=== PATIENT | female | born 1960 | race Caucasian/White ===

== ENCOUNTER 2018-05-31 13:01 | Emergency (ER) | payer OTHER ==
[~2018-05-31] VITALS: Ht 157.5 cm; Wt 79.4 kg
[2018-05-31 13:22] VITALS: BP_SYST 145
[2018-05-31] MEDS: HYDROcodone/ACETAMIN 5-325 MG TAB (NORCO/ VICODIN) PO ONE ×2 (13:43→13:47)
[2018-05-31] MEDS ORDERED: DEXAMETHASONE SOD PHOSPHATE 10 MG/ML VIAL IM ONE (13:45)
[2018-05-31] MEDS ORDERED: IPRATROPIUM/ALBUTEROL SULFATE 3 ML AMPUL.NEB INH ONE (13:45)
[2018-05-31 14:40] VITALS: BP_SYST 140
== END 2018-05-31 14:37 | disposition home or self-care (01) ==
LOC: SED 13:01
DX: J20.9 Acute bronchitis, unspecified (principal); R03.0 Elevated blood-pressure reading, without diagnosis of hypertension; E11.9 Type 2 diabetes mellitus without complications; Z88.0 Allergy status to penicillin; Z90.89 Acquired absence of other organs; Z90.49 Acquired absence of other specified parts of digestive tract; Z90.710 Acquired absence of both cervix and uterus
CPT/HCPCS: 71045; 94640; 96372; 99283; J1100; J7620

== ENCOUNTER 2019-01-11 19:13 | Inpatient (IN) | payer OTHER ==
[~2019-01-11] VITALS: Ht 157.5 cm; Wt 80.7 kg
--- NOTE | 2019-01-11 19:15 | NUR ---
191 - Patient to ER bed 3 to [facility] for evaluation. Side rails up. Report given to ELDON Beach.
[2019-01-11 19:27] VITALS: BP_SYST 153
--- NOTE | 2019-01-11 19:48 | NUR ---
Dr. Hwang bedside for pt eval
[2019-01-11] MEDS ORDERED: ONDANSETRON HCL 4 MG/2 ML VIAL IVP ONE (20:00)
[2019-01-11] MEDS ORDERED: ASPIRIN 325 MG TABLET PO ONE (20:00)
[2019-01-11] MEDS ORDERED: NITROGLYCERIN 0.4 MG TAB.SUBL SL ONE ×2 (20:00→23:15)
--- NOTE | 2019-01-11 20:00 | NUR ---
Pt BIB family to ED C/O SOB for 2 days and 7/10 chest tightness since last night. Pt took aspirin for her chest tightness with minimal relief. Pt claims she was taken off of Synthroid approximately 2-3 weeks ago and was recently put back on the medication 5 days ago which she believes is the cause of her current symptoms. Further reports of headache, dizziness, neck ache, back ache, nausea, and vomiting for 2 days. Pt claims she was unable to get out of bed yesterday and feeling "foggy." Of note, pt states she had "bronchitis 3 times this year. Hx of thyroid disease, hypertension, high cholesterol, and borderline diabetes. No other injuries and or complaints noted. VSS no s/s of acute distress. Resting on gurney with rails up
--- NOTE | 2019-01-11 20:09 | NUR ---
12 lead EKG done bedside, well tolerated
--- NOTE | 2019-01-11 20:10 | NUR ---
Portable X Ray bedside, pt in stable condition
--- NOTE | 2019-01-11 20:20 | NUR ---
Nitro SL x 1, pt states she feels much better, "I don't think I need any more."
[2019-01-11 20:46] LABS: CALCIUM 9.6 mg/dL (8.4-11.0); CREATININE 0.64 mg/dL (0.55-1.30); POTASSIUM 3.5 mmol/L (3.5-5.1)
[2019-01-11 20:47] LABS: HEMATOCRIT 43.2 % (36-48); HEMOGLOBIN 14.4 g/dL (12.0-16.0); MEAN CORPUSCULAR HEMOGLOBIN 30 pg (27-31); MEAN CORPUSCULAR HGB CONC 33 % (32-36); MEAN CORPUSCULAR VOLUME 90 fL (79.0-98.0); PLATELET COUNT (AUTO) 182 K/uL (130-430); RED BLOOD CELL COUNT(AUTO) 4.79 MIL/uL (4.2-6.2); RED CELL DISTRIBUTION WIDTH 14.8 % (9.0-15.0); WHITE BLOOD COUNT (AUTO) 7.5 K/uL (4.8-10.8)
[2019-01-11 20:51] LABS: ALBUMIN 3.5 g/dL (3.4-4.8); TOTAL BILIRUBIN 0.4 mg/dL (0.0-1.0)
[2019-01-11 21:08] LABS: INR 0.9 (0.8-1.2); PROTHROMBIN TIME 9.6 SECS (9.5-12.5)
[2019-01-11 21:12] LABS: BILIRUBIN,URINE NEGATIVE (NEGATIVE); BLOOD, URINE 1+ (NEGATIVE); CLARITY/URINE CLEAR (CLEAR); COLOR,URINE YELLOW (YELLOW); GLUCOSE,URINE NEGATIVE (NEGATIVE); KETONES,URINE NEGATIVE (NEGATIVE); LEUKOCYTE ESTERASE ,URINE 1+ (NEGATIVE); NITRITE, URINE NEGATIVE (NEGATIVE); PROTEIN URINE NEGATIVE (NEGATIVE); UROBILINOGEN,URINE 0.2 (0.2-1.0)
[2019-01-11 21:25] LABS: BAND % (MANUAL) 5 % (0-6); BASOPHILS % (MANUAL) 0 % (0-2); EOSINOPHILS % (MANUAL) 4 % (0-7); LYMPHOCYTES % (MANUAL) 60 % (20-46); MONOCYTES % (MANUAL) 2 % (0-11)
--- NOTE | 2019-01-11 21:27 | NUR ---
Pt in stable condition with VSS no s/s of acute distress. Resting on gurney with rails up
[2019-01-11 21:41] LABS: RBC,URINE 0-3 /HPF (0-3)
[2019-01-11 21:42] LABS: BACTERIA,URINE RARE /HPF (None Seen); MUCUS,URINE None Seen /LPF (None Seen); WBC,URINE 0-3 /HPF (0-3)
[2019-01-11] MEDS ORDERED: IPRATROPIUM/ALBUTEROL SULFATE 3 ML AMPUL.NEB (DUONEB) INH ONE (22:00)
[2019-01-11] MEDS ORDERED: CIPROFLOXACIN LACT 400 MG/D5W 200 ML IV ONE (22:00)
--- NOTE | 2019-01-11 22:10 | NUR ---
Dr. Hwang bedside updated pt on possible admission
[2019-01-11] MEDS ORDERED: D5W 1,000 ML IV PRN (23:03)
[2019-01-11] MEDS ORDERED: ONDANSETRON HCL 4 MG/2 ML VIAL IVP PRN (23:15)
[2019-01-11] MEDS ORDERED: DEXTROSE 50% JECT 50 ML DISP.SYRIN IVP PRN (23:15)
[2019-01-11] MEDS ORDERED: HYDROcodone/ACETAMIN 10-325 MG TAB PO PRN (23:15)
[2019-01-11] MEDS ORDERED: GLUCOSE 15 GM GEL (in 37.5 GM TUBE) PO PRN (23:15)
--- NOTE | 2019-01-11 23:15 | NUR ---
Dr. Leiva bedside in the ER to see pt
--- NOTE | 2019-01-11 23:18 | NUR ---
Pt will be adm under the care of Dr. Weller per Dr. Leiva.
--- NOTE | 2019-01-11 23:37 | NUR ---
ADMISSION NOTE Received patient from ER via lilian, received report from ELDON GARCIA. Patient admitted with diagnosis of CHEST PAIN R/O IA. Patient oriented to hospital routine, call light, toileting and safety-patient verbalized understanding.
--- NOTE | 2019-01-11 23:37 | NUR ---
Patient will be admitted to care of Dr. Weller (per Dr. Leiva). Admitted to Telemetry unit. Will go to room 118. Belongings list completed. Summary report printed. Report will be given at bedside.
[2019-01-11 23:38] VITALS: BP_SYST 153
[2019-01-12] MEDS ORDERED: OMEP20CA10 PO (00:06)
[2019-01-12] MEDS ORDERED: ESCI20TA PO (00:06)
[2019-01-12] MEDS ORDERED: GLUXR500 PO (00:06)
--- NOTE | 2019-01-12 00:50 | NUR ---
Admission assessment done. Pt denies chest pain or pressure at this time. cardiac monitor technician is showing SB with HR in the high 50's. Saline lock in RAC is without any signs of infiltration. Call light is with pt and bed alarm is on.
--- NOTE | 2019-01-12 01:00 | NUR ---
PAGED I PAGED [phone] @ [phone] I SPOKE WITH TANVIR EXCHANGE
--- NOTE | 2019-01-12 01:05 | NUR ---
Pt requested Lexapro for sleep and wants paged. Pt stated she cannot sleep at night without taking Lexapro. Will page Dr. Leiva.
--- NOTE | 2019-01-12 01:31 | NUR ---
PAGED I PAGED DR. TRONCOSO @ [phone] I SPOKE WITH CRISSY EXCHANGE THIS IS THE SECOND CALL DR. TRONCOSO CALLED BACK @ [phone]
--- NOTE | 2019-01-12 01:36 | NUR ---
Dr. lam called back and new order received.
--- NOTE | 2019-01-12 01:59 | NUR ---
Celexa 15mg (hospital formulary for Lexapro per outside pharmacy) was given po for insomnia.
[2019-01-12] MEDS ORDERED: CITALOPRAM HYDROBROMIDE 20 MG TABLET PO SCH ×2 (02:00→21:00)
--- NOTE | 2019-01-12 03:30 | NUR ---
Pt is sleeping without any respiratory distress noted. Fall and safety precautions are in place.
--- NOTE | 2019-01-12 05:15 | NUR ---
Pt continues to sleep without any distress noted. Fall and safety precautions are in place.
[2019-01-12] MEDS: PANTOPRAZOLE SODIUM 40 MG TAB PO SCH (06:12)
[2019-01-12 06:40] LABS: BASOPHILS # (AUTO) 0.1 K/uL (0.0-0.2); BASOPHILS % (AUTO) 0.8 % (0.0-2.0); EOSINOPHILS # (AUTO) 0.3 K/uL (0.0-0.4); EOSINOPHILS % (AUTO) 3.8 % (0.0-4.0); HEMOGLOBIN 13.7 g/dL (12.0-16.0); LYMPHOCYTES # (AUTO) 3.3 K/uL (1.0-5.5); LYMPHOCYTES % (AUTO) 48.8 % (20.5-51.5); MEAN CORPUSCULAR HEMOGLOBIN 31 pg (27-31); MEAN CORPUSCULAR HGB CONC 34 % (32-36); MEAN CORPUSCULAR VOLUME 91 fL (79.0-98.0); MONOCYTES # (AUTO) 0.5 K/uL (0.0-1.0); MONOCYTES % (AUTO) 7.6 % (1.7-9.3); NEUTROPHILS # (AUTO) 2.6 K/uL (1.8-7.7); PLATELET COUNT (AUTO) 163 K/uL (130-430); RED BLOOD CELL COUNT(AUTO) 4.51 MIL/uL (4.2-6.2); RED CELL DISTRIBUTION WIDTH 14.3 % (9.0-15.0); WHITE BLOOD COUNT (AUTO) 6.7 K/uL (4.8-10.8)
[2019-01-12 06:50] LABS: ANION GAP 7 (5-15); CALCIUM 8.7 mg/dL (8.4-11.0); CHLORIDE 104 mmol/L (98-107); CREATININE 0.75 mg/dL (0.55-1.30); GLUCOSE 110 mg/dL (70-99); POTASSIUM 3.5 mmol/L (3.5-5.1); SODIUM SERUM 141 mmol/L (136-145); UREA NITROGEN, BLOOD 15 mg/dL (8-21)
--- NOTE | 2019-01-12 06:55 | NUR ---
Pt is awake and resting quietly in bed. All pt's needs were attended to. Saline lock is intact in RAC. Accucheck 107 this AM and no Insulin coverage needed. Skin remains warm and dry to touch. Fall and safety precautions are in place. Will endorse to day shift nurse.
[2019-01-12 07:00] LABS: ALANINE AMINOTRANSFERASE 42 U/L (12-78); ALBUMIN 3.4 g/dL (3.4-4.8); ASPARTATE AMINOTRANSFERASE 17 U/L (10-37); TOTAL BILIRUBIN 0.4 mg/dL (0.0-1.0)
[2019-01-12 07:14] LABS: GFR AFRICAN AMERICAN 102 mL/min (>90)
--- NOTE | 2019-01-12 07:40 | NUR ---
opening note patient is resting in bed, A&Ox4, assessment completed, educated consumer services consultant light system and plan of care, patient verbalized understanding, patient denies any pain or SOB at this time, no other needs addressed at this time, IV site clean with no signs of infiltration, allergy band on, fall/safety precautions in place.
[2019-01-12 08:00] VITALS: BP_SYST 119
[2019-01-12] MEDS: ASPIRIN 325 MG TABLET (ECOTRIN) PO SCH (08:25)
--- NOTE | 2019-01-12 09:25 | NUR ---
Cardiac consult called: for Dr. Feldman, regarding chest pain, ordered by Dr. Weller, spoke with Bernard.
[2019-01-12 09:56] LABS: THYROID STIMULATING HORMONE 4.2 uIu/mL (0.34-4.82)
--- NOTE | 2019-01-12 10:30 | NUR ---
rounds patient in bed, patient received a 2-d echo and is getting ekg, refilled patient's water, patient denies any pain at this time, no other needs addressed at this time, fall/safety precautions in place.
[2019-01-12] MEDS: ACETAMINOPHEN 325 MG TABLET PO PRN ×2 (11:51→20:46)
[2019-01-12 12:00] VITALS: BP_SYST 124
--- NOTE | 2019-01-12 12:00 | NUR ---
accuchek and tylenol patient resting in bed, patient complaining of headache, accuchek done and sliding scale needed per MD order, educated on medication uses and side effects, patient verbalized understanding and tolerated well, no other needs addressed at this time, fall/safety precautions in place.
[2019-01-12] MEDS: INSULIN REGULAR, HUMAN 100 UNITS/ML, 10 ML VIAL (novoLIN R) SUBCUT PRN ×2 (12:01→20:53)
[2019-01-12] MEDS ORDERED: LIP40 PO (12:22)
[2019-01-12] MEDS ORDERED: LEVO112T5 PO (12:22)
[2019-01-12] MEDS ORDERED: LOSA50TA3 PO (12:22)
--- NOTE | 2019-01-12 14:29 | NUR ---
rounds patient resting in bed, family at the bedside, assisted patient to bathroom and back to bed, no other needs addressed at this time, fall/safety precautions in place.
[2019-01-12 16:30] VITALS: BP_SYST 119
--- NOTE | 2019-01-12 18:54 | NUR ---
opening note patient is resting in bed, patient denies any pain or SOB at this time, no other needs addressed at this time, IV site clean with no signs of infiltration, allergy band on, fall/safety precautions in place, will endorse report to noc shift nurse about patient is able to ambulate steady to the bathroom, nasal cannula is on standby in case patient feels light headed again, patient is scheduled for a stress test tomorrow so she needs to be NPO after midnight for it.
--- NOTE | 2019-01-12 19:19 | NUR ---
Initial Notes Received handoff report from offgoing nurse at the bedside. Patient is awake and alert, resting comfortably in bed. No SOB, no acute distress, no complaints pain or facial grimacing noted at this time. Bed is locked, in the lowest position, 2x side rails up. Patient refuses bed alarm at this time, stating she is able to ambulate to the restroom and back to bed independently without assistance. Call light is within reach. Encouraged patient to call for assistance. Will continue with plan of care.
[2019-01-12 20:00] VITALS: BP_SYST 131
[2019-01-12] MEDS ORDERED: ESCITALOPRAM OXALATE 10 MG TABLET PO SCH (21:00)
--- NOTE | 2019-01-12 22:05 | NUR ---
PATIENT RESTING COMFORTABLY IN BED, EYES CLOSED. BREATHING EVEN AND UNLABORED WITH VISIBLE CHEST RISE AND FALL NOTED. NO SOB, NO ACUTE DISTRESS, NO SIGNS OF PAIN OR FACIAL GRIMACING NOTED. BED IS LOCKED, IN THE LOWEST POSITION, 2X SIDE RAILS UP. CALL LIGHT WITHIN REACH.
--- NOTE | 2019-01-12 23:55 | NUR ---
patient resting comfortably in bed, eyes closed. breathing even and unlabored with visible chest rise and fall noted. bed is locked, in the lowest position, 2x side rails up. call light within reach.
[2019-01-13 00:56] VITALS: BP_SYST 123
--- NOTE | 2019-01-13 01:55 | NUR ---
Patient is sleeping, resting comfortably in bed. No SOB, no acute distress, no signs of pain or facial grimacing. Breathing even and unlabored with visible chest rise and fall noted. Bed is locked, in the lowest position, 2x side rails up. Call light is within reach.
--- NOTE | 2019-01-13 04:00 | NUR ---
Patient resting in bed, sleeping. Breathing even and unlabored, Visible chest rise and fall noted. No SOB, no acute distress. No signs of pain at this time. Call light within reach. Stable.
--- NOTE | 2019-01-13 05:50 | NUR ---
Patient is resting comfortably in bed, eyes closed. Breathing even and unlabored with visible chest rise and fall noted. Bed is locked, in the lowest position, 2x side rails up. Call light is within reach.
[2019-01-13] MEDS: PANTOPRAZOLE SODIUM 40 MG TAB PO SCH (06:01)
--- NOTE | 2019-01-13 06:27 | NUR ---
CLOSING NOTES PATIENT IS RESTING COMFORTABLY IN BED, EYES CLOSED. BREATHING EVEN AND UNLABORED WITH VISIBLE CHEST RISE AND FALL NOTED. IV SITE INTACT, DRESSING CLEAN AND DRY, SALINE LOCKED. BED IS LOCKED, IN THE LOWEST POSITION, 2X SIDE RAILS UP. BED ALARM IS ON. CALL LIGHT IS WITHIN REACH FALL AND SAFETY PRECAUTIONS MAINTAINED. ALL NEEDS HAVE BEEN MET DURING THIS SHIFT. WILL ENDORSE CARE TO ONCOMING DAYSHIFT NURSE.
--- NOTE | 2019-01-13 07:45 | NUR ---
OPENING NOTE: RECEIVED REPORT FROM NIGHT NURSE. PATIENT IS RESTING COMFORTABLY IN BED. NO S/S OF DISTRESS OR SOB. PATIENT IS ALERT AND ORIENTED, ABLE TO EXPRESS NEEDS, AND ASK FOR ASSISTANCE. PATIENT IS ON ROOM AIR. IV IS PATENT AND SALINE LOCKED. PATIENT NPO WAITING FOR STRESS TEST. CALL LIGHT IN REACH, BED IN LOWEST POSITION ,AND WILL CONTINUE TO MONITOR.
[2019-01-13 08:00] VITALS: BP_SYST 134
[2019-01-13] MEDS ORDERED: REGADENOSON 0.4 MG/5 ML SYRINGE IVP ONE (09:00)
[2019-01-13] MEDS: ASPIRIN 325 MG TABLET (ECOTRIN) PO SCH (11:37)
--- NOTE | 2019-01-13 11:57 | NUR ---
RN ROUNDS PATIENT IS RESTING COMFORTABLY IN BED. NO S/S OF DISTRESS OR SOB. PATIENT IS ALERT AND ORIENTED. WAITING FOR RESULTS FROM STRESS TEST FOR POSSIBLE DISCHARGE. PATIENT IS AWARE. NO NEEDS AT THIS TIME. CALL LIGHT IN REACH, BED IN LOWEST POSITION, AND WILL CONTINUE TO MONITOR.
[2019-01-13 12:38] VITALS: BP_SYST 121
[2019-01-13 13:32] VITALS: BP_SYST 121
== END 2019-01-13 14:00 | disposition home or self-care (01) | DRG 313 ==
LOC: SED 19:13 → STU 23:01
PROVIDERS: ADMIT Internal Medicine Hospice and Palliative Medicine; ATTEND Internal Medicine Hospice and Palliative Medicine
DX: R07.89 Other chest pain (principal); E03.9 Hypothyroidism, unspecified; E11.9 Type 2 diabetes mellitus without complications; I10 Essential (primary) hypertension; E78.5 Hyperlipidemia, unspecified; F32.9 Major depressive disorder, single episode, unspecified; Z88.0 Allergy status to penicillin; Z90.710 Acquired absence of both cervix and uterus; Z90.49 Acquired absence of other specified parts of digestive tract; Z82.49 Family history of ischemic heart disease and other diseases of the circulatory system
CPT/HCPCS: 36415; 71045; 80053; 80061; 81000-TC; 82550-TC; 82962; 83880; 84443-TC; 84484; 85007; 85025; 85027; 85379; 85610-TC; 87040-TC; 87086; 93005; 93017; 93306; 94640; 96375; 99285; A9500; G0378; J0744; J2405; J2785; J7620